=== PATIENT | male | born 1995 | race Caucasian/White ===

== ENCOUNTER 2019-07-09 15:25 | Inpatient (IN) | payer MEDICAID ==
[~2019-07-09] VITALS: Ht 190.5 cm; Wt 98.0 kg
[2019-07-09] MEDS ORDERED: HYDROcodone/ACETAMIN 10-325 MG TAB PO PRN (23:18)
[2019-07-09] MEDS ORDERED: HYDROcodone/ACETAMIN 5-325 MG TAB (NORCO/ VICODIN) PO PRN (23:18)
[2019-07-10] MEDS: RIVAROXABAN 15 MG TABLET PO SCH (17:00)
[2019-07-10] MEDS ORDERED: *LOVENOX 1MG/KG Q12H/PHARMACY XX SCH (17:00)
[2019-07-11 12:00] VITALS: BP_SYST 128
[2019-07-11 16:53] VITALS: BP_SYST 114
[2019-07-11] MEDS ORDERED: WARF5TAB2 PO (17:02)
[2019-07-11] MEDS ORDERED: HYDR-4272 PO (17:02)
[2019-07-11] MEDS ORDERED: SER100 PO (17:02)
[2019-07-11 20:00] VITALS: BP_SYST 122
[2019-07-11] MEDS ORDERED: QUEtiapine FUMARATE 100 MG TABLET PO SCH ×2 (21:00)
[2019-07-11] MEDS ORDERED: HYDROcodone/ACETAMIN 5-325 MG TAB (NORCO/ VICODIN) PO PRN (21:00)
[2019-07-11] MEDS: HYDROcodone/ACETAMIN 10-325 MG TAB PO PRN (22:07)
[2019-07-11] MEDS: RIVAROXABAN 15 MG TABLET PO SCH (22:08)
[2019-07-12] VITALS: BP_SYST 120
[2019-07-12 08:14] VITALS: BP_SYST 127
[2019-07-12] MEDS: RIVAROXABAN 15 MG TABLET PO SCH (10:02)
[2019-07-12 11:14] VITALS: BP_SYST 115
[2019-07-12] MEDS: HYDROcodone/ACETAMIN 10-325 MG TAB PO PRN (11:36)
[2019-07-12] MEDS ORDERED: RIVA15TA PO (11:45)
[2019-07-12] MEDS ORDERED: HYDR-4272 PO (11:45)
[2019-07-12] MEDS ORDERED: SER100 PO (11:45)
[2019-07-12 12:33] VITALS: BP_SYST 115
[2019-07-12 16:29] VITALS: BP_SYST 121
[2019-07-23 09:21] LABS: BASOPHILS % (AUTO) 1.2 % (0.0-2.0); EOSINOPHILS % (AUTO) 3.5 % (0.0-4.0); HEMATOCRIT 46.1 % (36-54); HEMOGLOBIN 15.6 g/dL (14.0-18.0); LYMPHOCYTES % (AUTO) 22.3 % (20.5-51.5); MEAN CORPUSCULAR HEMOGLOBIN 29 pg (27-31); MEAN CORPUSCULAR HGB CONC 34 % (32-36); MEAN CORPUSCULAR VOLUME 85 fL (79.0-98.0); MONOCYTES % (AUTO) 9.1 % (1.7-9.3); NEUTROPHILS % (AUTO) 63.9 % (40.0-70.0); PLATELET COUNT (AUTO) 467 K/uL (130-430); RED BLOOD CELL COUNT(AUTO) 5.42 MIL/uL (4.2-6.2); RED CELL DISTRIBUTION WIDTH 13.3 % (9.0-15.0); WHITE BLOOD COUNT (AUTO) 8.3 K/uL (4.8-10.8)
[2019-07-23 09:22] LABS: CALCIUM 8.8 mg/dL (8.4-11.0); POTASSIUM 3.7 mmol/L (3.5-5.1)
[2019-07-23 09:23] LABS: CREATININE 1.2 mg/dL (0.55-1.30); TOTAL BILIRUBIN 0.4 mg/dL (0.0-1.0)
[2019-07-23 09:25] LABS: INR 2.7 (0.80-1.20)
[2019-07-23 09:26] LABS: BILIRUBIN,URINE NEGATIVE (NEGATIVE); BLOOD, URINE NEGATIVE (NEGATIVE); CLARITY/URINE CLEAR (CLEAR); COLOR,URINE YELLOW (YELLOW); GLUCOSE,URINE NEGATIVE (NEGATIVE); KETONES,URINE NEGATIVE (NEGATIVE); LEUKOCYTE ESTERASE ,URINE NEGATIVE (NEGATIVE); NITRITE, URINE NEGATIVE (NEGATIVE); PROTEIN URINE NEGATIVE (NEGATIVE); UROBILINOGEN,URINE 0.2 (0.2-1.0)
== END 2019-07-12 16:50 | disposition home or self-care (01) | DRG 197 ==
LOC: SED 15:25 → STU 18:00
PROVIDERS: ADMIT Preventive Medicine Preventive Medicine/Occupational Environmental Medicine; ATTEND Preventive Medicine Preventive Medicine/Occupational Environmental Medicine
DX: I82.411 Acute embolism and thrombosis of right femoral vein (principal); I26.99 Other pulmonary embolism without acute cor pulmonale; F31.9 Bipolar disorder, unspecified; R04.2 Hemoptysis; I82.431 Acute embolism and thrombosis of right popliteal vein; I82.441 Acute embolism and thrombosis of right tibial vein; Z79.899 Other long term (current) drug therapy; Z82.3 Family history of stroke; Z86.718 Personal history of other venous thrombosis and embolism; Z86.711 Personal history of pulmonary embolism
CPT/HCPCS: 36415; 36600; 71045; 71275; 80053; 81003; 82803-TC; 83605; 84484; 85025; 85610-TC; 85730-TC; 86886; 86900; 86901; 87040-TC; 87081; 87086; 93005; 93971; 96360; 99285; G0378; J7030